=== PATIENT | female | born 1985 | race Caucasian/White ===

== ENCOUNTER 2017-08-14 16:35 | Emergency (ER) | payer OTHER ==
[2017-08-14 17:19] LABS: Bilirubin Small (Negative); Blood, Urine Large (Negative); Clarity CLEAR (Clear); Glucose, Urine (Dipstick) Negative (Negative); Leukocyte Trace (Negative); Nitrite Negative (Negative); Protein, Urine (Dipstick) 30 mg/dL (Neg-Trace); Specific Gravity, Urine 1.028 (1.002-1.036); pH, Urine 6.5 (5.0-9.0)
[2017-08-14 17:21] LABS: Bacteria/HPF 1+ HPF (None Seen); Hyaline Casts/LPF 4-6 HYALINE CAST LPF (0-3 Hyaline); Pathc Cast-AUWi Flag 0.81 (0-2.49); RBC/HPF 21-50 HPF (0-3)
[2017-08-14 17:22] LABS: Renal Epithelial None Seen HPF (0-3); Transitional Epithelial NONE SEEN HPF (0-3)
[2017-08-14 17:44] LABS: Eosinophils 1 % (0-10); Hemoglobin 14.3 g/dL (12.0-16.0); Lymphocytes 59 % (21-51); MDiff Complete? YES; Mean Corpuscular HGB CONC 32.6 g/dL (32.0-36.0); Mean Corpuscular Hemoglobin 31.4 pg (27.0-31.0); Mean Corpuscular Volume 96.4 fl (81.0-99.0); Mean Platelet Volume 8.8 fL (7.4-10.4); Monocytes 4 % (0-10); Neutrophil 36 % (42-75); PLT Morphology Comment Appears Decreased; Platelet Count 64 thou/uL (130-400); RBC Distribution Width 11.6 % (11.5-14.5); Red Blood Cell (RBC) Count 4.54 mill/uL (4.20-5.40); White Blood Cell (WBC) Count 6.3 thou/uL (4.8-10.8)
[2017-08-14 18:56] LABS: ALT (SGPT) 14 U/L (8-55); AST (SGOT) 14 U/L (5-34); Albumin 4.4 g/dL (3.5-5.0); Alkaline Phosphatase 56 U/L (40-150); Anion Gap 11 mmol/L (10-20); BUN (Urea Nitrogen) 15 mg/dL (7.0-18.7); Bilirubin, Total 0.2 mg/dL (0.2-1.2); Calc. Creatinine Clearance 0 mL/min (70-130); Calcium 9.5 mg/dL (7.8-10.44); Carbon Dioxide 28 mmol/L (22-29); Chloride 105 mmol/L (98-107); Estimated GFR-MDRD Greater than 90; Globulin 2.8 g/dL (2.4-3.5); Glucose 86 mg/dL (70-105); Potassium 3.9 mmol/L (3.5-5.1); Protein, Total 7.2 g/dL (6.0-8.3); Sodium 140 mmol/L (136-145)
--- NOTE | 2017-08-14 19:59 | ULT ---
EXAM: PELVIC ULTRASOUND 08/14/17 HISTORY: Vaginal bleeding. COMPARISON: None. TECHNIQUE: Transabdominal and endovaginal imaging of the pelvis is performed. Ovaries are interrogated with eric scale, color flow, doppler imaging and spectral waveform analysis. FINDINGS: A retroverted uterus is identified, measuring 7.0 x 3.5 x 5.2 cm. Endometrium has a homogeneous echot exture measuring 1.0 cm. Anechoic focus in the left ovary measuring 1.6 x 0.9 x 1.4 cm compatible with a cyst. Overall, the le ft ovary measures 2.9 x 2.1 x 2.8 cm. There is an anechoic focus in the right ovary measuring 1.0 x 1 .3 x 0.9 cm compatible with an dominant follicle. Overall the right ovary measures 2.9 x 1.8 x 2.9 cm . No significant free fluid. OVARIAN DOPPLER: Vascular flow to the left and right ovary. IMPRESSION: 1. No sonographic evidence of intrauterine gestation. Correlate with laboratory values if there is concern for possible . 2. Left ovarian cyst and right ovarian follicle. POS: [facility]
== END 2017-08-14 19:50 | disposition home or self-care (01) ==
LOC: ERS 16:35
DX: O20.0 Threatened abortion (principal); O99.341 Other mental disorders complicating pregnancy, first trimester; F90.9 Attention-deficit hyperactivity disorder, unspecified type; Z3A.01 Less than 8 weeks gestation of pregnancy
CPT/HCPCS: 36415; 76856; 80053; 81003; 81015; 84702; 85025; 86900; 86901